=== PATIENT | female | born 1990 | race Two or more races ===

== ENCOUNTER 2023-01-29 16:08 | Emergency (ER) | payer OTHER ==
[~2023-01-29] VITALS: Ht 177.8 cm; Wt 95.3 kg
[2023-01-29] MEDS ORDERED: ZOFRAN8 MG PO (22:46)
[2023-01-29] MEDS ORDERED: PEPCID AC20 MG PO (22:46)
== END 2023-01-29 23:07 | disposition home or self-care (01) ==
LOC: ER 16:08
DX: A08.39 Other viral enteritis (principal); Z88.6 Allergy status to analgesic agent